=== PATIENT | female | born 2000 | race Caucasian/White ===

== ENCOUNTER 2023-08-15 08:04 | Emergency (ER) | payer BC, SELFPAY ==
[2023-08-15 08:25] VITALS: BP 152/79; PULSE 77; RESP 20; TEMP 36.5; O2SAT 97; BMI 30.4
--- NOTE | 2023-08-15 08:28 | EXP.UTC ---
Discharge Plan Disposition Patient Disposition: Home, Self-Care Condition: Good Prescriptions Prescriptions: New methylprednisolone 4 mg Tablets,Dose Pack 4 mg PO DIRECTED Qty: 21 0RF eughogdlxhyktsc-zaobmaqtx-NS [Bromfed DM] 2-30-10 mg/5 mL Syrup 5 ml PO Q6H PRN (Reason: Cough) Qty: 240 0RF cefdinir 300 mg capsule 300 mg PO BID Qty: 20 0RF No Action Kyleena 17.5 mcg/24 hrs (5 yrs) 19.5 mg Intrauterine Device 17.5 mcg INTRAUTERINE ONCE Referrals Follow up/Referrals: Provider,Referral, MD [Primary Care Provider] - See instructions Activity Restrictions/Add. Instructions Additional Instructions/Restrictions: Drink plenty of fluids. Take tylenol or ibuprofen for pain or fever. Take the medications as directed. Follow up with your regular doctor. GO TO THE ER FOR ANY WORSENING SYMPTOMS Clinical Impressions Clinical Impression: Pharyngitis Instructions Patient Instructions: Strep Throat, DI for Strep Throat Discharge ED Provider: Augusto Neal [facility] General Stated complaint: Sore throat, Time Seen by Provider: 08/15/23 08:27 History of Present Illness Provider Complaint: She states that for the past 2 days she has had a very sore throat and she has felt bad. Related Data Home Medications Medication Instructions Recorded Confirmed levonorgestrel 17.5 mcg/24 hrs 17.5 mcg intrauterine ONCE 08/15/23 08/15/23 (5yrs) 19.5mg intrauterine device Control (Kyleena) Previous Rx's Medication Instructions Recorded wtdlwbqtexjmegx-ymoujwoxvkrmgtc-KD 5 ml PO Q6H PRN Cough #240 mL 08/15/23 2 mg-30 mg-10 mg/5 mL oral syrup (Bromfed DM) cefdinir 300 mg capsule 300 mg PO BID #20 caps 08/15/23 methylprednisolone 4 mg tablets in 4 mg PO DIRECTED #21 tabs 08/15/23 a dose pack Allergies Allergy/AdvReac Type Severity Reaction Status Date / Time amoxicillin Allergy Verified 08/15/23 08:39 [facility] Disclaimer: The information contained in this section may have been updated after the patient was seen, as this information can be updated by other users. Surgical History (Updated 08/15/23 @ 08:40 by Carmenza Mccallum RN) History of repair of ACL Social History Smoking Status: Never smoker alcohol intake: never current occupational status: employed Travel in the last 8 weeks: None ROS Obtained: Yes All systems reviewed & no additional complaints except as documented Constitutional Constitutional: Reports chills and Reports fever(s) Eyes Eyes: Denies eye discharge ENT Ears, Nose, Mouth, and Throat: Reports as per HPI Cardiovascular Cardiovascular: Denies chest pain Respiratory Respiratory: Denies chest congestion and Reports cough Gastrointestinal Gastrointestingal: Reports nausea; Denies abdominal pain, constipation, cramping, diarrhea or vomiting Musculoskeletal Musculoskeletal: Denies arthralgias Integumentary/Breasts Skin/Breast: Denies rash Neurologic Neurologic: Denies paresthesias Physical Exam General General appearance: alert and in no apparent distress Head Head exam: atraumatic, normocephalic and normal inspection Eye Eye exam: Present normal appearance, PERRL and EOMI ENT ENT exam: Present mucous membranes moist and normal external ear exam Expanded ENT Exam TM/Canal exam: Bilateral TM: erythema and bulging Nose exam: Absent sinus tenderness Mouth exam: Present normal external inspection; Absent drooling Teeth exam: Present normal inspection Throat exam: Present tonsillar erythema, tonsillomegaly and tonsillar exudate Neck Neck exam: Present normal inspection, full ROM and trachea midline; Absent tenderness, meningismus or lymphadenopathy Chest Chest inspection: Present normal inspection and symmetric chest wall rise; Absent tenderness Respiratory Respiratory exam: Present normal lung sounds bilaterally; Absent respiratory distress, wheezes or stridor Cardiovascular Cardiovascular exam: Present regular r
[2023-08-15 08:35] LABS: UTC Strep Screen (Rapid) Negative (Negative)
[2023-08-15 08:41] VITALS: BP 152/79; PULSE 77; RESP 20; TEMP 36.5; O2SAT 97
== END 2023-08-15 08:54 | disposition home or self-care (01) ==
PROVIDERS: Emergency Provider Nurse Practitioner Family
DX: J02.9 Acute pharyngitis, unspecified (principal); R53.81 Other malaise; R50.9 Fever, unspecified; R05.9 Cough, unspecified
CPT/HCPCS: 87880; 99204; 99212; G0463